=== PATIENT | male | born 1980 | race Caucasian/White ===

== ENCOUNTER 2018-09-30 00:19 | Emergency (ER) | payer SELFPAY ==
[~2018-09-30] VITALS: Ht 182.9 cm; Wt 68.1 kg
[2018-09-30 00:27] VITALS: BP 111/72; PULSE 83; RESP 17; Ht 182.9 cm; Wt 68.1 kg
== END 2018-09-30 00:36 | disposition left against medical advice (07) ==
LOC: FTE 00:19
DX: Z53.21 Procedure and treatment not carried out due to patient leaving prior to being seen by health care provider (principal)